=== PATIENT | male | born 1985 | race American Indian/Alaskan Native ===

== ENCOUNTER 2018-11-14 14:29 | Emergency (ER) | payer SELFPAY ==
--- NOTE | 2018-11-14 14:58 | Event Note ---
ED Screening Note ED Screening Note: pt presents with N/V/D that began 5 days ago states had generalized abd cramping which resolved +urinary frequency no sick contacts no recent abx states the only treatment he tried was vitamin C PMHx none no daily meds no allergies to meds +smoker +marijuana +ETOH This initial assessment/diagnostic orders/clinical plan/treatment(s) is/are subject to change based on patients health status, clinical progression and re- assessment by fellow clinical providers in the ED. Further treatment and workup at subsequent clinical providers discretion. Patient/guardian urged not to elope from the ED as their condition may be serious if not clinically assessed and managed. Initial orders include: labs, UA
[2018-11-14 16:35] LABS: Hematocrit 47.5 % (35.5-45.6); Hemoglobin 15.6 gm/dl (11.8-15.2); Mean Corpuscular HGB Conc 33 % (32-34); Mean Corpuscular Volume 82 fl (84-94); Platelet Count 296 K/mm3 (140-440); Red Blood Count 5.77 M/mm3 (3.65-5.03); Red Cell Distribution Width 14.4 % (13.2-15.2)
[2018-11-14 16:54] LABS: Alanine Aminotransferase 12 units/L (7-56); Albumin 4.5 g/dL (3.9-5); BUN/Creatinine Ratio 11; Blood Urea Nitrogen 16 mg/dL (9-20); Hemolysis Index 3
[2018-11-14 17:25] LABS: Giant Platelets 1+; RBC Morphology Normal; Total Cells Counted 100
[2018-11-14 19:33] LABS: Bacteria,Urine 1+ /HPF (Negative); Bilirubin,Urine SM (Negative); Blood,Urine NEG (Negative); Color,Urine Amber (Yellow); Hyaline Casts,Urine 14 /LPF; Mucus,Urine 3+ /HPF
[2018-11-14 19:56] LABS: Ictotest,Urine Negative (Negative)
[2018-11-14] MEDS ORDERED: TORADOL IV ONE (19:57)
[2018-11-14] MEDS ORDERED: PEPCID IV ONE (19:57)
[2018-11-14] MEDS ORDERED: ZOFRAN IV ONE (19:57)
[2018-11-14] MEDS ORDERED: NACL 0.9% 1000 ML 1,000 ML IV ONE (19:57)
[2018-11-14 20:32] VITALS: BP 121/73
--- NOTE | 2018-11-14 21:37 | Emergency Department Report ---
ED N/V/D HPI - General Chief complaint: Abdominal Pain Stated complaint: VOMITTING/DIARRHEA/STOMACH PAIN Time Seen by Provider: 11/14/18 14:56 Source: patient Mode of arrival: Ambulatory Limitations: No Limitations - History of Present Illness Initial comments: Patient is a 33-year-old -[place] male with a history of morbid obesity who presents to the ED with complaint of acute onset of persistent nausea and vomiting, diarrhea and diffuse abdominal pain for the last 6 days intermittently after eating out at a green party 1 week ago. Patient states that the nausea and vomiting and diarrhea have been intermittent and that he cannot keep anything down. Patient denies fever, chills, chest pain, shortness of breath, sore throat, dizziness, syncope, dysuria, urinary frequency and urgency, testicular pain, hematochezia, hematemesis, cough or palpitations. MD complaint: nausea, vomiting, abdominal pain -: Sudden, days(s) (6) Description of Vomiting: food contents, watery, bilious Description of Diarrhea: water Associated Abdominal Pain: Yes (diffuse) Location: diffuse Radiation: none Severity: moderate Pain Scale: 6 Quality: cramping, aching, dull Consistency: intermittent Improves with: none Worsens with: eating Context: possible food poisoning Associated Symptoms: denies other symptoms, loss of appetite, nausea/vomiting. denies: myalgias, chest pain, cough, diaphoresis, fever/chills, headaches, malaise, rash, dysuria, shortness of breath, syncope, weakness - Related Data Previous Rx's Medication Instructions Recorded Last Taken Type HYDROcodone/APAP 5-325 [[place] 1 each PO Q6HR PRN #20 tablet 04/03/14 Unknown Rx 5/325] Ibuprofen [Motrin] 800 mg PO TID PRN #30 tablet 04/03/14 Unknown Rx Dicyclomine [Bentyl] 20 mg PO Q6H PRN #24 tablet 11/14/18 Unknown Rx Ondansetron [Zofran ODT TAB] 8 mg PO Q8HR PRN #21 tab.rapdis 11/14/18 Unknown Rx Ranitidine HCl [Zantac] 150 mg PO Q12H #30 tablet 11/14/18 Unknown Rx Allergies Allergy/AdvReac Type Severity Reaction Status Date / Time No Known Allergies Allergy Verified 11/14/18 14:37 ED Review of Systems ROS: Stated complaint: VOMITTING/DIARRHEA/STOMACH PAIN Other details as noted in HPI Constitutional: denies: chills, fever Eyes: denies: eye pain, eye discharge, vision change ENT: denies: ear pain, throat pain Respiratory: denies: cough, shortness of breath, wheezing Cardiovascular: denies: chest pain, palpitations Endocrine: no symptoms reported Gastrointestinal: abdominal pain, nausea, vomiting, diarrhea Genitourinary: denies: urgency, dysuria Musculoskeletal: denies: back pain, joint swelling, arthralgia Skin: denies: rash, lesions Neurological: denies: headache, weakness, paresthesias Psychiatric: denies: anxiety, depression Hematological/Lymphatic: denies: easy bleeding, easy bruising ED Past Medical Hx - Past Medical History Previous Medical History?: No - Surgical History Past Surgical History?: No - Social History Smoking Status: Current Every Day Smoker Substance Use Type: Alcohol, Marijuana - Medications Home Medications: Home Medications Medication Instructions Recorded Confirmed Last Taken Type HYDROcodone/APAP 5-325 [[place] 1 each PO Q6HR PRN #20 tablet 04/03/14 Unknown Rx 5/325] Ibuprofen [Motrin] 800 mg PO TID PRN #30 tablet 04/03/14 Unknown Rx Dicyclomine [Bentyl] 20 mg PO Q6H PRN #24 tablet 11/14/18 Unknown Rx Ondansetron [Zofran ODT TAB] 8 mg PO Q8HR PRN #21 tab.rapdis 11/14/18 Unknown Rx Ranitidine HCl [Zantac] 150 mg PO Q12H #30 tablet 11/14/18 Unknown Rx ED Physical Exam - General Limitations: No Limitations General appearance: alert, in no apparent distress - Head Head exam: Present: atraumatic, normocephalic, normal inspection - Eye Eye exam: Present: normal appearance, PERRL, EOMI Pupils: Present: normal accommodation - ENT ENT exam: Present: normal exam, normal orophraynx, mucous membranes moist, TM's normal bilaterally, normal external ear exam - Neck Neck exam: Present: normal inspection, full ROM - Respiratory Respiratory exam: Present: normal lung sounds bilaterally. Absent: respiratory distress, wheezes, rales, rhonchi, stridor, chest wall tenderness, accessory muscle use, decreased breath sounds, prolonged expiratory - Cardiovascular Cardiovascular Exam: Present: normal rhythm, tachycardia, normal heart sounds. Absent: systolic murmur, diastolic murmur, rubs, gallop - GI/Abdominal GI/Abdominal exam: Present: soft, normal bowel sounds. Absent: tenderness, guarding, rebound, hyperactive bowel sounds, hypoactive bowel sounds, organomeg osiris, mass - Rectal Rectal exam: Present: deferred - Extremities Exam Extremities exam: Present: normal inspection, full ROM, normal capillary refill - Back Exam Back exam: Present: normal inspection, full ROM. Absent: tenderness, CVA tenderness (L), muscle spasm, paraspinal tenderness - Neurological Exam Neurological exam: Present: alert, oriented X3, CN II-XII intact, normal gait, reflexes normal - Psychiatric Psychiatric exam: Present: normal affect, normal mood - Skin Skin exam: Present: warm, dry, intact, normal color. Absent: rash ED Course Vital Signs 11/14/18 11/14/18 11/14/18 14:57 20:31 20:51 Temperature 97.6 F 97.6 F Pulse Rate 113 H 76 Respiratory 16 22 18 Rate Blood Pressure 159/90 Blood Pressure 121/73 [Left] O2 Sat by Pulse 100 97 Oximetry - Reevaluation(s) Reevaluation #1: 11/14/18 21:43 Patient is alert and oriented 3 and is not in distress, tachycardic in triage. Lab test results were reviewed and unremarkable. Patient received normal saline 1 L IV 1, and paramedics and pain medications. On reevaluation, patient has not had any nausea or vomiting in the ED. Patient pain and nausea or vom iting have resolved and patient is able to keep oral fluids in the ED with no vomiting. Patient discharged home on antiemetics, antacids and pain medication and advised follow-up with his primary care physician in 5-7 days for reevaluation, or return to the ED immediately if symptoms get worse. 11/14/18 21:46 ED Medical Decision Making - Lab Data Result diagrams: 11/14/18 16:06 11/14/18 16:06 - Medical Decision Making Patient is alert and oriented 3 and is not in distress, tachycardic in triage. Lab test results were reviewed and unremarkable. Patient received normal saline 1 L IV 1, and paramedics and pain medications. On reevaluation, patient has not had any nausea or vomiting in the ED. Patient pain, nausea and vomiting have resolved and patient is able to keep oral fluids in the ED with no vomiting. Patient's symptoms are likely due to a viral gastroenteritis from food poisoning. Patient discharged home on antiemetics, antacids and pain medication and advised follow-up with his primary care physician in 5-7 days for reevaluation, or return to the ED immediately if symptoms get worse. - Differential Diagnosis Viral gastroenteritis, Vomiting and diarrhea, abdominal pain, Food poisonin Critical care attestation.: If time is entered above; I have spent that time in minutes in the direct care of this critically ill patient, excluding procedure time. ED Disposition Clinical Impression: Nausea and vomiting in adult Abdominal pain Qualifiers: Abdominal location: generalized Qualified Code(s): R10.84 - Generalized abdominal pain Disposition: TO HOME OR SELFCARE Is pt being admited?: No Does the pt Need Aspirin: No Condition: Stable Instructions: Acute Nausea and Vomiting (ED), Acute Abdominal Pain (ED) Additional Instructions: Take medications with food, drink plenty of fluids and follow up with your primary care physician in 3-5 days for reevaluation. Return to the ED immediately if symptoms get worse. Prescriptions: Dicyclomine [Bentyl] 20 mg PO Q6H PRN #24 tablet PRN Reason: Pain , Severe (7-10) Ranitidine HCl [Zantac] 150 mg PO Q12H #30 tablet Ondansetron [Zofran ODT TAB] 8 mg PO Q8HR PRN #21 tab.rapdis PRN Reason: Nausea Referrals: [facility] [Outside] - 3-5 Days Time of Disposition: 21:35 Print Language: LITHUANIAN
== END 2018-11-14 21:45 | disposition home or self-care (01) ==
LOC: ED 14:29
DX: R11.2 Nausea with vomiting, unspecified (principal); R10.84 Generalized abdominal pain; R19.7 Diarrhea, unspecified; E66.01 Morbid (severe) obesity due to excess calories; Z68.34 Body mass index [BMI] 34.0-34.9, adult; F17.200 Nicotine dependence, unspecified, uncomplicated; F12.10 Cannabis abuse, uncomplicated; Z79.1 Long term (current) use of non-steroidal anti-inflammatories (NSAID); Z79.899 Other long term (current) drug therapy
CPT/HCPCS: 36415; 80053; 81001; 83690; 85007; 85025; 87086; 96361; 96374; 96375; 99283; J1885; J2405; J7030